=== PATIENT | male | born 1945 | race Caucasian/White ===

== ENCOUNTER 2018-01-23 12:15 | Inpatient (IN) | payer OTHER ==
[2018-01-23 12:42] VITALS: BMI 24.8
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
[2018-01-23] MEDS ORDERED: P-EPHED 60MG/TRIPROLIDI 2.5MG TABLET PO PRN (16:18)
[2018-01-23] MEDS ORDERED: MAGNESIUM HYDROX 2400MG/30ML ORAL SUSPENSION 30 ML CUP PO PRN (16:18)
[2018-01-23] MEDS ORDERED: MAGNESIUM CITRATE 300 ML BOTTLE PO PRN (16:18)
[2018-01-23] MEDS ORDERED: MAG HYDROX/AL HYDROX/SIMETH 30 ML UNIT-DOSE CUP PO PRN (16:18)
[2018-01-23] MEDS ORDERED: IBUPROFEN 400 MG TABLET (FP) PO PRN (16:18)
[2018-01-23] MEDS ORDERED: LOPERAMIDE HCL 2 MG CAPSULE PO PRN (16:18)
[2018-01-23] MEDS ORDERED: hydrOXYzine PAMOATE 25 MG CAPSULE (FP) PO PRN (16:18)
[2018-01-23] MEDS ORDERED: MENTHOL/PHENOL 1 EACH UD MM PRN (16:18)
[2018-01-23] MEDS ORDERED: chlordiazePOXIDE HCL 25 MG CAPSULE PO PRN (16:18)
[2018-01-23] MEDS ORDERED: guaiFENesin/D-METHORPHAN HB 10 ML UNIT-DOSE CUPS PO PRN (16:18)
[2018-01-23] MEDS ORDERED: ACETAMINOPHEN 325 MG TABLET (FP) PO PRN (16:18)
[2018-01-23] MEDS: chlordiazePOXIDE HCL 25 MG CAPSULE PO SCH ×2 (19:54→22:44)
[2018-01-23] MEDS ORDERED: METHADONE HCL 10 MG TABLET PO ONE (20:18)
--- NOTE | 2018-01-23 20:26 | PN ---
S Progress Note Note: One time dose of methadone 140mg ordered for tomorrow as verified by pt's take home bottle. Doses from thursday will be subject to verification from thursday, pt made aware. Vistaril prn d/c in view of it's interaction with methadone. Pt's symptoms will be treated if/when it occurs
[2018-01-23] MEDS ORDERED: METHADONE 120 MG, METHADONE 20 MG PO ONE (21:00)
[2018-01-23] MEDS: THIAMINE HCL 100 MG TABLET (FP) PO SCH (22:44)
[2018-01-24] MEDS ORDERED: METHADONE HCL 10 MG TABLET PO ONE ×2 (06:00)
[2018-01-24] MEDS ORDERED: METHADONE 120 MG, METHADONE 20 MG PO ONE ×2 (06:00→07:00)
[2018-01-24] MEDS ORDERED: METHADONE HCL 40 MG DISPERSABLE TABLET ONE (07:06)
[2018-01-24] MEDS ORDERED: METHADONE HCL 10 MG TABLET ONE (07:07)
[2018-01-24] MEDS: chlordiazePOXIDE HCL 25 MG CAPSULE PO SCH ×4 (07:15→22:22)
[2018-01-24] MEDS: PRENATAL VITAMINS W/ FOLIC ACID TABLET (FP) PO SCH (10:43)
--- NOTE | 2018-01-24 11:35 | EKG ---
Test Reason : Blood Pressure : / mmHG Vent. Rate : 079 BPM Atrial Rate : 079 BPM P-R Int : 150 ms QRS Dur : 070 ms QT Int : 402 ms P-R-T Axes : 054 003 023 degrees QTc Int : 460 ms NORMAL SINUS RHYTHM NONSPECIFIC ST ABNORMALITY NO PREVIOUS ECGS AVAILABLE Confirmed by JENISE COLLINS MD ([id number]) on 01/24/2018 11:35:04 AM Referred By: Confirmed By:JENISE COLLINS MD
--- NOTE | 2018-01-24 15:50 | PN ---
[facility] CIWA - CIWA Score Nausea/Vomitin Muscle Tremors: 4-Moderate,w/Arms Extend Anxiety: 4-Mod. Anxious/Guarded Agitation: 4-Moderately Restless Paroxysmal Sweats: 3 Orientation: 0-Oriented Tacttile Disturbances: 0-None Auditory Disturbances: 0-None Visual Disturbances: 0-None Headache: 0-None Present CIWA-Ar Total Score: 18 BHS Progress Note (SOAP) Subjective: Tremor, interrupted sleep Objective: 01/24/18 15:47 Last Vital Signs Temp Pulse Resp BP Pulse Ox 97.4 F L 79 18 103/67 01/24/18 13:57 01/24/18 13:57 01/24/18 13:57 01/24/18 13:57 Admission Labs (patient refused); will reorder in AM (CBC, CMP, RPR) Assessment: 01/24/18 15:49 Withdrawal symptoms Plan: Continue detox Encouraged PO water intake Reorder admission labs in AM (CBC, CMP, RPR)
[2018-01-24] MEDS: THIAMINE HCL 100 MG TABLET (FP) PO SCH (22:21)
[2018-01-24] MEDS: MELATONIN 5 MG TABLETS PO PRN (22:22)
[2018-01-25] MEDS ORDERED: METHADONE HCL 10 MG TABLET PO SCH (06:00)
[2018-01-25] MEDS: chlordiazePOXIDE HCL 25 MG CAPSULE PO SCH ×2 (07:23→10:33)
[2018-01-25] MEDS ORDERED: METHADONE 120 MG, METHADONE 20 MG PO ONE (10:00)
[2018-01-25] MEDS ORDERED: METHADONE HCL 40 MG DISPERSABLE TABLET ONE (10:27)
[2018-01-25] MEDS ORDERED: METHADONE HCL 10 MG TABLET ONE (10:27)
[2018-01-25] MEDS: PRENATAL VITAMINS W/ FOLIC ACID TABLET (FP) PO SCH (10:32)
[2018-01-25 10:49] LABS: HEMATOCRIT 38.3 % (35.4-49); HEMOGLOBIN 13.7 GM/dL (11.7-16.9); MCH 33.9 pg (25.7-33.7); MCHC 35.7 g/dl (32.0-35.9); MEAN PLT VOLUME 7.4 fl (7.5-11.1); PLATELET COUNT 180 K/MM3 (134-434); RBC 4.03 M/mm3 (4.00-5.60); WHITE BLOOD COUNT 7.9 K/mm3 (4.0-10.0)
[2018-01-25 11:14] LABS: ALBUMIN 3.4 g/dl (3.4-5.0); ALK PHOS 94 U/L (45-117); ANION GAP 8 MMOL/L (8-16); BILIRUBIN,TOTAL 0.6 mg/dL (0.2-1); BLOOD UREA NITROGEN 22 mg/dL (7-18); CALCIUM 8.7 mg/dL (8.5-10.1); CHLORIDE 95 mmol/L (98-107); CO2 33 mmol/L (21-32); CREATININE 0.7 mg/dL (0.55-1.3); GLUCOSE,RANDOM 118 mg/dL (74-106); SGOT/AST 67 U/L (15-37); SGPT/ALT 57 U/L (13-61); SODIUM 136 mmol/L (136-145); TOT PROT 7.3 g/dl (6.4-8.2)
--- NOTE | 2018-01-25 14:14 | PN ---
S CIWA - CIWA Score Nausea/Vomitin Muscle Tremors: 3 Anxiety: 2 Agitation: 2 Paroxysmal Sweats: 3 Orientation: 1-Uncertain about Date Tacttile Disturbances: 0-None Auditory Disturbances: 0-None Visual Disturbances: 0-None Headache: 0-None Present CIWA-Ar Total Score: 13 BHS Progress Note (SOAP) Subjective: sweats tremors Objective: 01/25/18 14:10 Sleeping but arousable Not in distress Vital Signs Temperature 97.1 F L 01/25/18 13:16 Pulse Rate 60 01/25/18 13:16 Respiratory Rate 18 01/25/18 13:16 Blood Pressure 124/65 01/25/18 13:16 O2 Sat by Pulse Oximetry (%) Laboratory Last Values WBC 7.9 K/mm3 (4.0-10.0) 01/25/18 07:40 RBC 4.03 M/mm3 (4.00-5.60) 01/25/18 07:40 Hgb 13.7 GM/dL (11.7-16.9) 01/25/18 07:40 Hct 38.3 % (35.4-49) 01/25/18 07:40 MCV 95.0 fl (80-96) 01/25/18 07:40 MCH 33.9 pg (25.7-33.7) H 01/25/18 07:40 MCHC 35.7 g/dl (32.0-35.9) 01/25/18 07:40 RDW 13.0 % (11.9-15.9) 01/25/18 07:40 Plt Count 180 K/MM3 (134-434) 01/25/18 07:40 MPV 7.4 fl (7.5-11.1) L 01/25/18 07:40 Sodium 136 mmol/L (136-145) 01/25/18 07:40 Potassium 4.0 mmol/L (3.5-5.1) 01/25/18 07:40 Chloride 95 mmol/L (98-107) L 01/25/18 07:40 Carbon Dioxide 33 mmol/L (21-32) H 01/25/18 07:40 Anion Gap 8 MMOL/L (8-16) 01/25/18 07:40 BUN 22 mg/dL (7-18) H 01/25/18 07:40 Creatinine 0.7 mg/dL (0.55-1.3) 01/25/18 07:40 Creat Clearance w eGFR > 60 (>60) 01/25/18 07:40 Random Glucose 118 mg/dL (74-106) H 01/25/18 07:40 Calcium 8.7 mg/dL (8.5-10.1) 01/25/18 07:40 Total Bilirubin 0.6 mg/dL (0.2-1) 01/25/18 07:40 AST 67 U/L (15-37) H 01/25/18 07:40 ALT 57 U/L (13-61) 01/25/18 07:40 Alkaline Phosphatase 94 U/L (45-117) 01/25/18 07:40 Total Protein 7.3 g/dl (6.4-8.2) 01/25/18 07:40 Albumin 3.4 g/dl (3.4-5.0) 01/25/18 07:40 RPR Titer Nonreactive (NONREACTIVE) 01/25/18 07:40 LABS NOTED, UA PENDING Assessment: 01/25/18 14:14 WITHDRAWAL SX Plan: CONTINUE DETOX INCREASE HYDRATION
[2018-01-25] MEDS: chlordiazePOXIDE 5 MG CAPSULE PO SCH ×2 (18:08→22:59)
[2018-01-25] MEDS: THIAMINE HCL 100 MG TABLET (FP) PO SCH (22:30)
[2018-01-25] MEDS: MELATONIN 5 MG TABLETS PO PRN (22:31)
[2018-01-26] MEDS ORDERED: METHADONE HCL 10 MG TABLET ONE (04:07)
[2018-01-26] MEDS ORDERED: METHADONE HCL 40 MG DISPERSABLE TABLET ONE (04:07)
[2018-01-26] MEDS: chlordiazePOXIDE 5 MG CAPSULE PO SCH ×2 (07:28→11:02)
[2018-01-26] MEDS: METHADONE 120 MG, METHADONE 20 MG PO SCH (10:43)
[2018-01-26] MEDS: PRENATAL VITAMINS W/ FOLIC ACID TABLET (FP) PO SCH (11:02)
[2018-01-26] MEDS: SENNOSIDES 8.6MG TABLET (FP) PO PRN ×2 (11:06→22:46)
--- NOTE | 2018-01-26 11:51 | PN ---
[facility] Progress Note Note: PATIENT CONTINUES WITH DETOX REGIMEN. C/O CONSTIPATION. Vital Signs Temperature 97.7 F 01/26/18 09:38 Pulse Rate 66 01/26/18 09:38 Respiratory Rate 20 01/26/18 09:38 Blood Pressure 107/68 01/26/18 09:38 O2 Sat by Pulse Oximetry (%) Laboratory Tests 01/25/18 01/25/18 01/25/18 07:40 07:40 07:40 WBC 7.9 RBC 4.03 Hgb 13.7 Hct 38.3 MCV 95.0 MCH 33.9 H MCHC 35.7 RDW 13.0 Plt Count 180 MPV 7.4 L Sodium 136 Potassium 4.0 Chloride 95 L Carbon Dioxide 33 H Anion Gap 8 BUN 22 H Creatinine 0.7 Creat Clearance w eGFR > 60 Random Glucose 118 H Calcium 8.7 Total Bilirubin 0.6 AST 67 H ALT 57 Alkaline Phosphatase 94 Total Protein 7.3 Albumin 3.4 RPR Titer Nonreactive PE: SKIN WARM AND DRY CAR S1S2 RESP CTA BL GI SOFT, BS+, NT ALERT AND ORIENTED X 3 AMB AD FLORENCIA EXT FULL ROM A/P WITHDRAWAL SX CONTINUE DETOX REGIMEN ENCOURAGE ORAL FLUIDS ADD SENNA ONE TAB PO BID PRN CONTINUE TO MONITOR CLINICALLY
[2018-01-26] MEDS: chlordiazePOXIDE HCL 10 MG CAPSULE PO SCH ×2 (18:08→22:46)
[2018-01-26] MEDS ORDERED: SENNOSIDES 8.6MG TABLET (FP) PO SCH (22:00)
[2018-01-26] MEDS: THIAMINE HCL 100 MG TABLET (FP) PO SCH (22:46)
[2018-01-27] MEDS ORDERED: METHADONE HCL 40 MG DISPERSABLE TABLET ONE ×2 (04:51→08:57)
[2018-01-27] MEDS ORDERED: METHADONE HCL 10 MG TABLET ONE ×2 (04:51→08:58)
[2018-01-27] MEDS: chlordiazePOXIDE HCL 10 MG CAPSULE PO SCH (08:18)
[2018-01-27] MEDS: METHADONE 120 MG, METHADONE 20 MG PO SCH (09:13)
[2018-01-27 10:30] VITALS: BP 104/61; PULSE 75; TEMP 97.9
[2018-01-27] MEDS: PRENATAL VITAMINS W/ FOLIC ACID TABLET (FP) PO SCH (10:41)
--- NOTE | 2018-01-27 11:22 | DS ---
[facility] Detox Discharge Summary Admission Date: 01/23/18 Discharge Date: 01/27/18 - History Present History: Alcohol Dependence - Physical Exam Results Vital Signs: Vital Signs Temperature 97.9 F 01/27/18 10:00 Pulse Rate 75 01/27/18 10:00 Respiratory Rate 16 01/27/18 10:00 Blood Pressure 104/61 01/27/18 10:00 O2 Sat by Pulse Oximetry (%) Pertinent Admission Physical Exam Findings: PATIENT COMPLETED DETOX FOR ETOH DEPENDENCE WITHOUT ADVERSE EVENT. PATIENT CLINICALLY STABLE AND DENIES SI/HI UPON D/C. PATIENT TO FOLLOW UP WITH METHADONE OUTPATIENT PROGRAM TODAY UPON D/C. PATIENT ENCOURAGED TO ATTEND GROUP MEETINGS TO PREVENT RELASPE AND FOLLOW UP WITH PCP WITHIN 72 HOURS OF D/C. PATIENT STRONGLY ADVISED TO SEEK MEDICAL ATTENTION FOR WITHDRAWAL SYMPTOMS. D/C INSTRUCTIONS PROVIDED TO PATIENT BY STAFF. - Treatment Hospital Course: Detox Protocol Followed, Detoxed Safely, Responded well, Discharged Condition Good Patient has Accepted a Rehab Referral to: PATIENT TO CONTINUE WITH CURRENT METHADONE PROGRAM OUTPATIENT - Medication Discharge Medications: Ambulatory Orders Albuterol Sulfate Inhaler - [Ventolin Hfa Inhaler -] 1 - 2 inh PO Q4H 01/23/18 Clopidogrel Bisulfate [Clopidogrel] 75 mg PO HS 01/23/18 Donepezil HCl 10 mg PO DAILY 01/23/18 Fluticasone Propionate [Flovent Diskus] 50 mcg IH DAILY 01/23/18 Gabapentin 400 mg PO DAILY 01/23/18 Metformin HCl [Metformin HCl ER] 500 mg PO BID 01/23/18 Simvastatin 20 mg PO HS 01/23/18 Tamsulosin HCl 0.4 mg PO DAILY 01/23/18 Methadone [Dolophine -] 140 mg PO DAILY 01/25/18 - Diagnosis (1) Alcohol dependence with uncomplicated withdrawal Current Visit: Yes Status: Resolved (2) Opioid dependence on agonist therapy Current Visit: Yes Status: Chronic - AMA Did Patient Leave Against Medical Advice: No
== END 2018-01-27 11:23 | disposition home or self-care (01) | DRG 897 ==
LOC: YASAS 12:15 → Y3N 17:33
PROC: HZ2ZZZZ Detoxification Services for Substance Abuse Treatment (ICD-10-PCS; principal; 2018-01-23)
DX: F10.230 Alcohol dependence with withdrawal, uncomplicated (principal); F11.20 Opioid dependence, uncomplicated; E11.9 Type 2 diabetes mellitus without complications; C61 Malignant neoplasm of prostate; J45.909 Unspecified asthma, uncomplicated; M19.90 Unspecified osteoarthritis, unspecified site; K74.60 Unspecified cirrhosis of liver; E78.00 Pure hypercholesterolemia, unspecified; G40.909 Epilepsy, unspecified, not intractable, without status epilepticus; Z79.01 Long term (current) use of anticoagulants; Z79.84 Long term (current) use of oral hypoglycemic drugs; Z87.891 Personal history of nicotine dependence
CPT/HCPCS: 36415; 71045-TC-FY; 80053; 85027; 86593; 93005; 93010